=== PATIENT | male | born 1935 | race African-American/Black ===

== ENCOUNTER 2018-04-22 13:10 | Inpatient (IN) | payer MEDICARE, OTHER ==
[~2018-04-22] VITALS: Ht 180.3 cm; Wt 79.6 kg
[2018-04-22 14:03] LABS: Basophils # (auto) 0 uL; Basophils % (auto) 0.9 % (0.0-2.0); Eosinophils # (auto) 0.2 uL; Eosinophils % (auto) 5.3 % (0.0-7.0); Hematocrit 39.3 % (41.0-53.0); Hemoglobin 13.1 g/dL (13.5-17.5); Lymphocytes % (auto) 23.7 % (10.0-50.0); Mean Corpuscular Hemoglobin 32.5 pg (28.0-32.0); Mean Corpuscular Hgb Conc. 33.4 g/dL (32.0-36.0); Mean Corpuscular Volume 97.2 fL (80.0-100.0); Monocytes # (auto) 0.3 uL; Monocytes % (auto) 6.4 % (0.0-12.0); Neutrophils # (auto) 2.8 uL; Neutrophils % (auto) 63.7 % (37.0-80.0); Nucleated Red Blood Cells % 0.1 %; Platelet Count (auto) 139 10^3/uL (140-450); Red Blood Cells 4.05 10^6/uL (4.5-5.90); Red Cell Distribution Width 13.6 % (11.8-14.3); White Blood Cell 4.4 10^3/uL (4.4-10.8)
[2018-04-22 14:15] LABS: INR 0.97 (0.9-1.15); Partial Thromboplastin Time 24.4 sec (23.78-33.04); Prothrombin Time 10.4 sec (9.27-12.13)
[2018-04-22 14:27] LABS: BUN/Creatinine Ratio 4.7; Bilirubin, Total 0.8 mg/dL (0.2-1.0); Potassium 4.4 mmol/L (3.5-5.1); Total Protein 8.6 g/dL (6.4-8.2)
[2018-04-22] MEDS ORDERED: ENOXAPARIN SOD 100 MG/1 ML SYRINGE SC ONE (15:30)
[2018-04-22] MEDS: NITROGLYCERIN 0.2MG/HR TOPICAL PATCH TD SCH (15:39)
[2018-04-22] MEDS: METOPROLOL TARTRATE 25 MG TAB PO SCH ×2 (15:45→22:09)
[2018-04-22] MEDS ORDERED: PROMETHAZINE HCL 25 MG/ML 1ML IV PRN (15:45)
[2018-04-22] MEDS ORDERED: LORazepam 0.5 MG TAB PO PRN (15:45)
[2018-04-22] MEDS ORDERED: LACTULOSE 20Gm/30ML SOLN PO PRN (15:45)
[2018-04-22] MEDS ORDERED: TEMAZEPAM 15 MG CAP PO PRN (15:45)
[2018-04-22] MEDS ORDERED: ACETAMINOPHEN 500 MG TAB PO PRN (15:45)
[2018-04-22] MEDS ORDERED: HYDROcodone-ACET 5/325MG TAB PO PRN (15:45)
[2018-04-22] MEDS ORDERED: MORPHINE SULF INJ 2 MG/ML SYRINGE 1ML IV PRN ×2 (15:45)
[2018-04-22] MEDS ORDERED: NITROGLYCERIN 0.4 MG SL TAB SL PRN (15:45)
[2018-04-22] MEDS: PANTOPRAZOLE 40 MG TAB PO SCH (15:51)
[2018-04-22 17:00] VITALS: BP 111/66
[2018-04-22] MEDS ORDERED: METOPROLOL TARTRATE 1MG/1ML-5ML VIAL IV ONE (20:45)
[2018-04-22 21:44] VITALS: BP 108/65
[2018-04-22] MEDS: ATORVASTATIN 20 MG TAB PO SCH (22:00)
[2018-04-22] MEDS: SODIUM CHLOR 0.9% PF (SALINE LOCK) 10ML VIAL/SYR IV SCH (22:01)
[2018-04-23 04:48] VITALS: BP 106/68
[2018-04-23] MEDS: SODIUM CHLOR 0.9% PF (SALINE LOCK) 10ML VIAL/SYR IV SCH ×3 (05:48→21:29)
[2018-04-23 08:00] VITALS: BP 111/69
[2018-04-23 09:01] VITALS: BP 111/69
[2018-04-23] MEDS: METOPROLOL TARTRATE 25 MG TAB PO SCH ×2 (10:00→21:29)
[2018-04-23] MEDS: NITROGLYCERIN 0.2MG/HR TOPICAL PATCH TD SCH (10:00)
[2018-04-23] MEDS: ENOXAPARIN SOD 80 MG/0.8ML SYRINGE SC SCH (10:25)
[2018-04-23] MEDS: PANTOPRAZOLE 40 MG TAB PO SCH (10:29)
[2018-04-23] MEDS: ASPirin 81 mg TAB PO SCH (10:29)
[2018-04-23 13:00] VITALS: BP 104/59
[2018-04-23 13:38] LABS: Cholesterol 164 mg/dL (< 200); HDL Cholesterol 59 mg/dL (40-59); LDL Cholesterol 100 mg/dL (< 100); Triglycerides 56 mg/dL (< 150)
[2018-04-23 17:01] VITALS: BP 109/63
[2018-04-23] MEDS: ATORVASTATIN 20 MG TAB PO SCH (21:28)
[2018-04-23 22:00] VITALS: BP 107/66
[2018-04-24 05:00] VITALS: BP 125/70
[2018-04-24] MEDS: SODIUM CHLOR 0.9% PF (SALINE LOCK) 10ML VIAL/SYR IV SCH ×3 (06:28→22:11)
[2018-04-24] MEDS: ASPirin 81 mg TAB PO SCH (09:05)
[2018-04-24] MEDS: PANTOPRAZOLE 40 MG TAB PO SCH (09:06)
[2018-04-24] MEDS: ENOXAPARIN SOD 80 MG/0.8ML SYRINGE SC SCH (09:06)
[2018-04-24] MEDS: NITROGLYCERIN 0.2MG/HR TOPICAL PATCH TD SCH (09:06)
[2018-04-24 09:07] VITALS: BP 117/64
[2018-04-24] MEDS: METOPROLOL TARTRATE 25 MG TAB PO SCH ×2 (09:07→22:11)
[2018-04-24 13:00] VITALS: BP 106/58
[2018-04-24 17:31] VITALS: BP 108/62
[2018-04-24 20:00] VITALS: BP 114/48
[2018-04-24 21:44] VITALS: BP 114/48
[2018-04-24] MEDS: ATORVASTATIN 20 MG TAB PO SCH (22:10)
[2018-04-25 05:19] VITALS: BP 116/70
[2018-04-25] MEDS: SODIUM CHLOR 0.9% PF (SALINE LOCK) 10ML VIAL/SYR IV SCH ×2 (06:00→14:00)
[2018-04-25 06:27] LABS: Basophils # (auto) 0 uL; Basophils % (auto) 0.5 % (0.0-2.0); Eosinophils # (auto) 0.2 uL; Eosinophils % (auto) 4.9 % (0.0-7.0); Hematocrit 31.8 % (41.0-53.0); Lymphocytes # (auto) 0.8 uL; Mean Corpuscular Hemoglobin 33.6 pg (28.0-32.0); Mean Corpuscular Hgb Conc. 34.5 g/dL (32.0-36.0); Mean Corpuscular Volume 97.2 fL (80.0-100.0); Monocytes # (auto) 0.4 uL; Monocytes % (auto) 8.9 % (0.0-12.0); Neutrophils # (auto) 2.7 uL; Neutrophils % (auto) 65.7 % (37.0-80.0); Platelet Count (auto) 128 10^3/uL (140-450); Red Blood Cells 3.27 10^6/uL (4.5-5.90); Red Cell Distribution Width 13.3 % (11.8-14.3); White Blood Cell 4.2 10^3/uL (4.4-10.8)
[2018-04-25 06:48] LABS: Albumin 3.1 g/dL (3.4-5.0); Potassium 5.3 mmol/L (3.5-5.1)
[2018-04-25 06:55] LABS: Bilirubin, Total 0.5 mg/dL (0.2-1.0); Total Protein 6.4 g/dL (6.4-8.2)
[2018-04-25 09:24] VITALS: BP 126/66
[2018-04-25] MEDS: NITROGLYCERIN 0.2MG/HR TOPICAL PATCH TD SCH (11:30)
[2018-04-25] MEDS: METOPROLOL TARTRATE 25 MG TAB PO SCH (11:31)
[2018-04-25] MEDS: ENOXAPARIN SOD 80 MG/0.8ML SYRINGE SC SCH (11:32)
[2018-04-25] MEDS: PANTOPRAZOLE 40 MG TAB PO SCH (11:32)
[2018-04-25] MEDS: ASPirin 81 mg TAB PO SCH (11:32)
[2018-04-25 12:49] VITALS: BP 121/66
[2018-04-25] MEDS ORDERED: SODIUM CHL 0.9% 1000 ML BAG XX ONE (14:45)
[2018-04-25 16:47] VITALS: BP 109/60
== END 2018-04-25 19:00 | disposition home or self-care (01) | DRG 280 ==
LOC: EDBD 13:10 → ER 13:13 → TELE 13:14 → TELE-WESTW 16:44
PROVIDERS: ADMIT Internal Medicine; ATTEND Family Medicine
PROC: 5A1D70Z Performance of Urinary Filtration, Intermittent, Less than 6 Hours Per Day (ICD-10-PCS; principal; 2018-04-25)
DX: I21.4 Non-ST elevation (NSTEMI) myocardial infarction (principal); N18.6 End stage renal disease; I47.1 Supraventricular tachycardia; I43 Cardiomyopathy in diseases classified elsewhere; I13.11 Hypertensive heart and chronic kidney disease without heart failure, with stage 5 chronic kidney disease, or end stage renal disease; Z99.2 Dependence on renal dialysis; I48.0 Paroxysmal atrial fibrillation; N18.9 Chronic kidney disease, unspecified; F03.90 Unspecified dementia, unspecified severity, without behavioral disturbance, psychotic disturbance, mood disturbance, and anxiety; E87.8 Other disorders of electrolyte and fluid balance, not elsewhere classified; D69.6 Thrombocytopenia, unspecified; Z79.899 Other long term (current) drug therapy; Z86.73 Personal history of transient ischemic attack (TIA), and cerebral infarction without residual deficits; Z91.14 Patient's other noncompliance with medication regimen; Z91.19 Patient's noncompliance with other medical treatment and regimen; Z90.49 Acquired absence of other specified parts of digestive tract
CPT/HCPCS: 36415; 70450; 71045; 80053; 80061; 82550; 83880; 84443; 84484; 85025; 85610; 85730; 87081; 90935; 93005; 93306; 93886; 96374

== ENCOUNTER 2018-09-15 07:33 | Emergency (ER) | payer MEDICARE, OTHER ==
[~2018-09-15] VITALS: Ht 180.3 cm; Wt 79.4 kg
[2018-09-15] MEDS ORDERED: DILTIAZEM HCL 25 MG/5 ML VIAL IV ONE (07:45)
[2018-09-15] MEDS ORDERED: METOPROLOL TARTRATE 1MG/1ML-5ML VIAL IV ONE ×2 (07:57→08:00)
[2018-09-15 08:12] LABS: Basophils # (auto) 0 uL; Basophils % (auto) 0.4 % (0.0-2.0); Eosinophils # (auto) 0.1 uL; Eosinophils % (auto) 1.1 % (0.0-7.0); Hematocrit 41.4 % (41.0-53.0); Hemoglobin 13.7 g/dL (13.5-17.5); Lymphocytes # (auto) 1.4 uL; Mean Corpuscular Hemoglobin 31.7 pg (28.0-32.0); Mean Corpuscular Hgb Conc. 33.1 g/dL (32.0-36.0); Mean Corpuscular Volume 95.8 fL (80.0-100.0); Monocytes # (auto) 0.5 uL; Monocytes % (auto) 10.6 % (0.0-12.0); Neutrophils # (auto) 2.8 uL; Neutrophils % (auto) 57.9 % (37.0-80.0); Nucleated Red Blood Cells % 0.1 %; Platelet Count (auto) 123 10^3/uL (140-450); Red Blood Cells 4.33 10^6/uL (4.5-5.90); Red Cell Distribution Width 13.9 % (11.8-14.3); White Blood Cell 4.8 10^3/uL (4.4-10.8)
[2018-09-15] MEDS ORDERED: AMIODARONE HCL 150 MG in D5W 5% 100 ML IV ONE (08:15)
[2018-09-15] MEDS ORDERED: AMIODARONE HCL 900 MG in DEXTROSE 500 ML IV SCH (08:17)
[2018-09-15 08:30] LABS: Albumin 3.9 g/dL (3.4-5.0); Calcium 9.1 mg/dL (8.5-10.1); Magnesium 2.2 mg/dL (1.6-2.6); Potassium 3.7 mmol/L (3.5-5.1)
[2018-09-15 08:32] LABS: BUN/Creatinine Ratio 3.2
[2018-09-15 08:37] LABS: Bilirubin, Total 0.9 mg/dL (0.2-1.0); Total Protein 8.1 g/dL (6.4-8.2)
[2018-09-15 11:07] VITALS: BP 120/75
[2018-09-18] MEDS ORDERED: ATOR10TA52 PO (01:35)
[2018-09-18] MEDS ORDERED: ASPI81CH4 PO (01:35)
[2018-09-18] MEDS ORDERED: METO25TA5 PO (01:35)
== END 2018-09-15 11:09 | disposition left against medical advice (07) ==
LOC: EDUNIT# 07:33 → ER 07:33
DX: I47.1 Supraventricular tachycardia (principal); I48.91 Unspecified atrial fibrillation; E78.5 Hyperlipidemia, unspecified; I12.0 Hypertensive chronic kidney disease with stage 5 chronic kidney disease or end stage renal disease; N18.6 End stage renal disease; Z90.49 Acquired absence of other specified parts of digestive tract; Z99.2 Dependence on renal dialysis
CPT/HCPCS: 36415; 71045; 80053; 83735; 84484; 85025; 93005; J7060